=== PATIENT | male | born 2000 | race Caucasian/White ===

== ENCOUNTER 2024-01-15 11:00 | Emergency (ER) | payer OTHER ==
[~2024-01-15] VITALS: Ht 180.3 cm; Wt 68.0 kg
[2024-01-15] MEDS ORDERED: Ondansetron HCl 2 MG / ML 2ML Vial IV PRN (11:15)
[2024-01-15] MEDS ORDERED: Ketorolac Tromethamine 30mg Vial IV ONE (11:20)
[2024-01-15] MEDS ORDERED: NS 1,000 ML IV SCH (11:30)
[2024-01-15 11:33] LABS: BASOPHILS ABSOLUTE AUTO 0.02 K/mm3 (0.00-0.23); BASOPHILS PERCENT AUTO 0 % (0-2); EOSINOPHILS ABSOLUTE AUTO 0.02 K/mm3 (0.00-0.68); EOSINOPHILS PERCENT AUTO 0 % (0-6); Hematocrit 45.4 % (37.0-53.0); IMMATURE GRAN ABSOLUTE AUTO 0.05 K/mm3 (0.00-0.10); IMMATURE GRAN PERCENT AUTO 0 % (0-1); LYMPHOCYTES ABSOLUTE AUTO 2.18 K/mm3 (0.84-5.20); LYMPHOCYTES PERCENT AUTO 16 % (21-46); MONOCYTES PERCENT AUTO 6 % (4-13); Mean Corpuscular HGB 29.2 pg (26.0-34.0); Mean Corpuscular HGB Conc 35.2 g/dL (31.5-36.5); Mean Corpuscular Volume 83 fL (80-100); Mean Platelet Volume 9.8 fL (9.1-12.4); NEUTROPHILS ABSOLUTE AUTO 10.29 K/mm3 (1.96-9.15); NEUTROPHILS PERCENT AUTO 77 % (41-73); Platelet Count 349 K/mm3 (150-400); RDW Coefficient Variation 11.6 % (11.7-14.2); RDW Standard Deviation 34.9 fL (35.1-46.3); Red Blood Cell Count 5.48 M/mm3 (4.30-5.90); White Blood Cell Count 13.36 K/mm3 (4.00-11.30)
[2024-01-15 11:50] LABS: Albumin, Blood 4.3 g/dL (3.4-5.0); Albumin/Globulin Ratio 1.2 (0.8-1.8); Bilirubin, Total 1.6 mg/dL (0.1-1.0); Bun/Creatinine Ratio 15.8 (12.0-20.0); Calcium, Blood 9.9 mg/dL (8.5-10.1); Creatinine, Blood 0.95 mg/dL (0.60-1.20); Globulin, Blood 3.7 g/dL (2.2-4.0); Potassium, Blood 3.8 mmol/L (3.5-5.5)
[2024-01-15] MEDS ORDERED: Droperidol 5 mg/2 ml Vial IV ONE (12:10)
[2024-01-15] MEDS ORDERED: Mag Hydrox/AL Hydrox/Simeth 30 ML UDC PO ONE (12:15)
[2024-01-15] MEDS ORDERED: FAMO20 PO (14:02)
[2024-01-15] MEDS ORDERED: DICY20 PO (14:02)
[2024-01-15] MEDS ORDERED: METO10 PO (14:02)
== END 2024-01-15 13:57 | disposition home or self-care (01) ==
LOC: ER 11:00
PROVIDERS: Emergency Medicine
DX: R11.2 Nausea with vomiting, unspecified (principal); R10.84 Generalized abdominal pain
CPT/HCPCS: 80053; 83690; 85025; 96361; 96374; 96375; 99284-25; A9270; J1790; J1885; J2405; J7030

== ENCOUNTER 2024-01-20 11:31 | Emergency (ER) | payer OTHER ==
[~2024-01-20] VITALS: Ht 180.3 cm; Wt 68.0 kg
[~2024-01-20 11:31] MED LIST: DICY20 PO; FAMO20 PO; METO10 PO
[2024-01-20] MEDS ORDERED: Ketorolac Tromethamine 15mg Vial IV ONE (12:05)
[2024-01-20] MEDS ORDERED: Ondansetron HCl 2 MG / ML 2ML Vial IV ONE ×2 (12:05→14:30)
[2024-01-20] MEDS ORDERED: NS 1,000 ML IV SCH (12:05)
[2024-01-20 12:29] LABS: BASOPHILS ABSOLUTE AUTO 0.02 K/mm3 (0.00-0.23); BASOPHILS PERCENT AUTO 0 % (0-2); EOSINOPHILS PERCENT AUTO 1 % (0-6); Hematocrit 43.6 % (37.0-53.0); Hemoglobin 15.7 g/dL (13.5-17.5); IMMATURE GRAN ABSOLUTE AUTO 0.02 K/mm3 (0.00-0.10); IMMATURE GRAN PERCENT AUTO 0 % (0-1); LYMPHOCYTES ABSOLUTE AUTO 2.12 K/mm3 (0.84-5.20); LYMPHOCYTES PERCENT AUTO 20 % (21-46); MONOCYTES ABSOLUTE AUTO 0.54 K/mm3 (0.16-1.47); MONOCYTES PERCENT AUTO 5 % (4-13); Mean Corpuscular HGB 29.2 pg (26.0-34.0); Mean Corpuscular Volume 81 fL (80-100); Mean Platelet Volume 9.7 fL (9.1-12.4); NEUTROPHILS ABSOLUTE AUTO 8.02 K/mm3 (1.96-9.15); NEUTROPHILS PERCENT AUTO 74 % (41-73); Platelet Count 322 K/mm3 (150-400); RDW Coefficient Variation 11.6 % (11.7-14.2); RDW Standard Deviation 33.9 fL (35.1-46.3); Red Blood Cell Count 5.37 M/mm3 (4.30-5.90); White Blood Cell Count 10.82 K/mm3 (4.00-11.30)
[2024-01-20 13:32] LABS: Albumin, Blood 3.8 g/dL (3.4-5.0); Albumin/Globulin Ratio 1.2 (0.8-1.8); Bilirubin, Total 0.8 mg/dL (0.1-1.0); Bun/Creatinine Ratio 11.4 (12.0-20.0); Calcium, Blood 9.6 mg/dL (8.5-10.1); Creatinine, Blood 0.79 mg/dL (0.60-1.20); Globulin, Blood 3.3 g/dL (2.2-4.0); Potassium, Blood 3.8 mmol/L (3.5-5.5); Total Protein, Blood 7.1 g/dL (6.4-8.2)
[2024-01-20] MEDS ORDERED: ONDA4ODT MM (16:13)
[2024-01-20] MEDS ORDERED: CAPSAICIN60 G1 TOP (16:13)
== END 2024-01-20 16:30 ==
LOC: ER 11:31
PROVIDERS: Physician Assistant
DX: R11.2 Nausea with vomiting, unspecified (principal); F12.10 Cannabis abuse, uncomplicated; T78.40XA Allergy, unspecified, initial encounter; Z79.899 Other long term (current) drug therapy
CPT/HCPCS: 74177; 80053; 83690; 85025; 96361; 96374-59; 96375; 96376; 99284-25; J1885; J2405; J7030; Q9967

== ENCOUNTER 2024-11-10 00:06 | Emergency (ER) | payer OTHER ==
[~2024-11-10] VITALS: Ht 182.9 cm; Wt 68.0 kg
[~2024-11-10 00:06] MED LIST changes: +CAPSAICIN60 G1 TOP; +ONDA4ODT MM
== END 2024-11-10 01:20 | disposition home or self-care (01) ==
LOC: ER 00:06
DX: R41.89 Other symptoms and signs involving cognitive functions and awareness (principal); T41.295A Adverse effect of other general anesthetics, initial encounter; Z88.8 Allergy status to other drugs, medicaments and biological substances; Z59.89 Other problems related to housing and economic circumstances
CPT/HCPCS: 99284

== ENCOUNTER → 2025-03-21 | Outpatient (CLI) | payer OTHER | LOC: LAB 17:27 → LAB SHORT 17:27 | DX: N34.2 Other urethritis (principal) | CPT/HCPCS: 87086 ==